=== PATIENT | female | born 1965 | race African-American/Black ===

== ENCOUNTER 2017-08-26 22:03 | Emergency (ER) | payer MEDICAID ==
[~2017-08-26] VITALS: Ht 165.1 cm; Wt 113.0 kg
[~2017-08-26 22:03] MED LIST: AMLO2.5T45 PO; ASPI-1159 PO; ASPI-867 PO; CARV25TA47 PO; DILT360C27 PO; FENO48 PO; FLUT1DIS3 ORI; FURO-151 PO; GABA300S PO; INS5050; ISOS30TA6 PO; ISOSORBIDE; LEVVL SUBCUT; LIP40 PO; LISI40TA4 PO; LOSA50TA3 PO; SIMV10TA6 PO; TRAM50TA3 PO
[2017-08-26] MEDS ORDERED: ONDANSETRON HCL 4MG/2ML VIAL IV STA (22:48)
[2017-08-26] MEDS ORDERED: MORPHINE SULFATE 4 MG/ML CPJ (NOT FOR IM USE) IV STA (22:48)
[2017-08-26] MEDS ORDERED: CEFTRIAXONE 1 G PREMIX 50 ML IV ONE (23:00)
[2017-08-26 23:11] LABS: BASOPHILS % 0.6 % (0.0-2.0); EOSINOPHILS % 1.2 % (0.0-5.0); HEMATOCRIT. 35.2 % (36.0-48.0); LYMPHOCYTES % 29.7 % (20.0-50.0); MEAN CORPUSCULAR HEMOGLOBIN 27.1 pg (28.0-32.0); MEAN CORPUSCULAR VOLUME 86.4 fL (81.0-99.0); MEAN PLATELET VOLUME 9.4 fl (7.4-10.4); MONOCYTES % 5.6 % (2.0-8.0); NEUTROPHILS % 62.9 % (40.0-76.0); PLATELET 269 x1000/uL (130-400); RED BLOOD CELL COUNT 4.07 mill/uL (4.2-5.4); RED CELL DISTRIBUTION WIDTH 15.8 % (11.6-14.6)
[2017-08-26 23:19] LABS: CHLORIDE 103 mEq/L (98-107)
[2017-08-26 23:21] LABS: CARBON DIOXIDE 29 mEq/L (21-32)
[2017-08-26 23:25] LABS: CLARITY URINE CLEAR (CLEAR); COLOR URINE YELLOW (YELLOW); GLUCOSE URINE 3+ (NEGATIVE); KETONES URINE NEGATIVE (NEGATIVE); LEUKOCYTE ESTERASE URINE NEGATIVE (NEGATIVE); NITRITE URINE NEGATIVE (NEGATIVE); OCCULT BLOOD URINE TRACE (NEGATIVE); PROTEIN URINE 3+ (NEGATIVE); SPECIFIC GRAVITY URINE 1.018 (1.005-1.030); UROBILINOGEN URINE 0.2 E.U./dL (0.2-1.0)
[2017-08-27 03:00] VITALS: BP 160/98
[2017-10-10] MEDS ORDERED: LANTUSUD SUBCUT (14:50)
== END 2017-08-27 03:00 | disposition home or self-care (01) ==
LOC: ER 22:10
DX: R10.31 Right lower quadrant pain (principal); R11.0 Nausea; I50.9 Heart failure, unspecified; R30.0 Dysuria; I11.0 Hypertensive heart disease with heart failure; J44.9 Chronic obstructive pulmonary disease, unspecified; E11.9 Type 2 diabetes mellitus without complications; I25.2 Old myocardial infarction; Z79.82 Long term (current) use of aspirin; Z79.4 Long term (current) use of insulin; Z90.710 Acquired absence of both cervix and uterus; Z90.89 Acquired absence of other organs
CPT/HCPCS: 36415; 71010; 74176; 80053; 81001; 83605; 85025; 87040; 87086; 96365; 96366; 96375; 99285; J0696; J2270; J2405; Z7610